=== PATIENT | female | born 1980 | race African-American/Black ===

== ENCOUNTER 2018-11-21 12:47 | Inpatient (IN) | payer OTHER ==
[~2018-11-21] VITALS: Ht 177.8 cm; Wt 110.5 kg
[2018-11-21] MEDS ORDERED: OXYTOCIN 30U/ 0.9% NaCL 500ML 500 ML IV ONE (13:09)
[2018-11-21] MEDS ORDERED: OXYTOCIN 30U/ 0.9% NaCL 500ML 500 ML IV PRN (13:09)
[2018-11-21] MEDS ORDERED: FENTANYL/BUPIV./NS/PF 250 ML EPIDCONT SCH ×2 (13:12→15:53)
[2018-11-21 13:29] LABS: BASOPHILS # (AUTO) 0.01 x10^3/uL (0-0.1); BASOPHILS % (AUTO) 0 % (0-1); EOSINOPHILS # (AUTO) 0.03 x10^3/uL (0-0.4); EOSINOPHILS % (AUTO) 0 % (1-7); LYMPHOCYTES # (AUTO) 1.13 x10^3/uL (1-3.4); LYMPHOCYTES % (AUTO) 13 % (22-44); MD NO; MEAN PLATELET VOLUME 8.9 fL (7.4-10.4); MONOCYTES # (AUTO) 0.57 x10^3/uL (0.2-0.8); MONOCYTES % (AUTO) 7 % (2-9); NEUTROPHILS # (AUTO) 7.13 x10^3/uL (1.8-6.8); NEUTROPHILS % (AUTO) 80 % (42-75); PLATELET COUNT 201 x10^3/uL (130-400); RED BLOOD COUNT 4.33 x10^6/uL (3.82-5.3); RED CELL DISTRIBUTION WIDTH 15.6 % (9.6-15.2)
[2018-11-21] MEDS ORDERED: FENTANYL PF 500 MCG, BUPIVACAINE/PF 0.5%, 30ML 62.5 ML in SODIUM CHLORIDE 0.9% 177.5 ML EPIDCONT SCH (13:30)
[2018-11-21] MEDS ORDERED: FENTANYL PF 100 MCG/2ML IVPush PRN (13:30)
[2018-11-21] MEDS ORDERED: ONDANSETRON 2MG/ML, 2ML IVPush PRN (13:30)
[2018-11-21] MEDS: LACTATED RINGERS 1,000 ML IV SCH ×2 (13:36)
[2018-11-21 13:42] LABS: ALANINE AMINOTRANSFERASE 21 U/L (12-78); ALBUMIN 2.6 g/dL (3.4-5.0); ANION GAP 8 mmol/L (5-15); CALCIUM 8.8 mg/dL (8.5-10.1); CHLORIDE 110 mmol/L (98-107); CREATININE 0.75 mg/dL (0.55-1.02)
[2018-11-21 13:44] LABS: ALKALINE PHOSPHATASE 161 U/L (45-117); BILIRUBIN,TOTAL 0.2 mg/dL (0.2-1.0); TOTAL PROTEIN 6.7 g/dL (6.4-8.2)
[2018-11-21] MEDS ORDERED: NEWBORN KIT ONE (14:12)
[2018-11-21] MEDS ORDERED: LIDOCAINE 1%, 20ML ONE (14:12)
[2018-11-21] MEDS ORDERED: MISOPROSTOL 200 MCG TABLET ONE (14:12)
[2018-11-21] MEDS ORDERED: LACTATED RINGERS 1,000 ML IV SCH (15:53)
[2018-11-21] MEDS ORDERED: LACTATED RINGERS 1,000 ML IVBOLUS PRN (16:00)
[2018-11-21] MEDS ORDERED: EPHEDRINE 50 MG/ML, 1ML IVPush PRN (16:00)
[2018-11-21] MEDS ORDERED: NALOXONE 0.4 MG/ML, 1ML IVPush PRN (16:00)
[2018-11-21] MEDS ORDERED: BUPIVACAINE 0.25% ONE (17:06)
[2018-11-21] MEDS ORDERED: OXYTOCIN 30U/ 0.9% NaCL 500ML 500 ML IV SCH (21:28)
[2018-11-21] MEDS ORDERED: ONDANSETRON 2MG/ML, 2ML IV PRN (21:30)
[2018-11-21] MEDS ORDERED: METHYLERGONOVINE 0.2 MG/ML IM PRN (21:30)
[2018-11-21] MEDS ORDERED: BISACODYL 10 MG SUPP PR PRN (21:30)
[2018-11-21] MEDS ORDERED: MISOPROSTOL 200 MCG TABLET PR PRN (21:30)
[2018-11-21] MEDS ORDERED: CALCIUM CARBONATE 500 MG TAB.CHEW PO PRN (21:30)
[2018-11-21] MEDS ORDERED: METOCLOPRAMIDE 5 MG/ML, 2ML IV PRN (21:30)
[2018-11-21] MEDS ORDERED: GLYCERIN ADULT SUPP PR PRN (21:30)
[2018-11-21] MEDS ORDERED: OXYcodone/APAP 5/325MG TABLET PO PRN ×2 (21:30)
[2018-11-21] MEDS ORDERED: CARBOPROST TROMETHAMINE 250 MCG/ML, 1ML IM PRN (21:30)
[2018-11-21] MEDS ORDERED: ACETAMINOPHEN 325 MG TABLET PO PRN ×3 (21:30)
[2018-11-21] MEDS ORDERED: OXYTOCIN 30U/ 0.9% NaCL 500ML 500 ML ONE (22:13)
[2018-11-22 00:15] VITALS: BP 130/69
[2018-11-22 04:10] VITALS: BP 136/74
[2018-11-22] MEDS: LACTATED RINGERS 1,000 ML IV SCH (05:09)
[2018-11-22] MEDS: IBUPROFEN 600 MG TABLET PO PRN ×2 (05:13→14:02)
[2018-11-22 06:28] LABS: BASOPHILS # (AUTO) 0.03 x10^3/uL (0-0.1); BASOPHILS % (AUTO) 0 % (0-1); EOSINOPHILS # (AUTO) 0.02 x10^3/uL (0-0.4); EOSINOPHILS % (AUTO) 0 % (1-7); LYMPHOCYTES # (AUTO) 1.34 x10^3/uL (1-3.4); LYMPHOCYTES % (AUTO) 12 % (22-44); MD NO; MEAN CORPUSCULAR HEMOGLOBIN 28.1 pg (27.0-34.8); MEAN CORPUSCULAR HGB CONC 33.7 g/dL (32.4-35.8); MEAN CORPUSCULAR VOLUME 83.3 fL (80-100); MEAN PLATELET VOLUME 8.9 fL (7.4-10.4); MONOCYTES # (AUTO) 0.92 x10^3/uL (0.2-0.8); MONOCYTES % (AUTO) 8 % (2-9); NEUTROPHILS # (AUTO) 9.37 x10^3/uL (1.8-6.8); NEUTROPHILS % (AUTO) 80 % (42-75); PLATELET COUNT 155 x10^3/uL (130-400); RED BLOOD COUNT 3.73 x10^6/uL (3.82-5.3); RED CELL DISTRIBUTION WIDTH 15.5 % (9.6-15.2)
[2018-11-22 07:15] VITALS: BP 110/71
[2018-11-22] MEDS: PRENATAL VIT/IRON/FA 1 EACH TABLET PO SCH (09:00)
[2018-11-22] MEDS: DOCUSATE 100 MG CAPSULE PO PRN (09:05)
[2018-11-22 11:30] VITALS: BP 116/79
[2018-11-22 20:20] VITALS: BP 115/71
[2018-11-23] MEDS: IBUPROFEN 600 MG TABLET PO PRN (01:14)
[2018-11-23 07:30] VITALS: BP 102/71
[2018-11-23] MEDS: DOCUSATE 100 MG CAPSULE PO PRN (07:32)
[2018-11-23] MEDS: PRENATAL VIT/IRON/FA 1 EACH TABLET PO SCH (09:00)
[2018-11-23] MEDS ORDERED: IBUP200T49 PO (09:48)
== END 2018-11-23 13:20 | disposition home or self-care (01) | DRG 807 ==
LOC: LDIP 12:47 → 2NW 23:58
PROVIDERS: ADMIT Obstetrics & Gynecology; ATTEND Obstetrics & Gynecology
PROC: 10E0XZZ Delivery of Products of Conception, External Approach (ICD-10-PCS; principal; 2018-11-21)
PROC: 0KQM0ZZ Repair Perineum Muscle, Open Approach (ICD-10-PCS; 2018-11-21)
PROC: 3E0R3BZ Introduction of Anesthetic Agent into Spinal Canal, Percutaneous Approach (ICD-10-PCS; 2018-11-21)
PROC: 00HU33Z Insertion of Infusion Device into Spinal Canal, Percutaneous Approach (ICD-10-PCS; 2018-11-21)
DX: O13.4 Gestational [pregnancy-induced] hypertension without significant proteinuria, complicating childbirth (principal); Z37.0 Single live birth; J45.909 Unspecified asthma, uncomplicated; O99.52 Diseases of the respiratory system complicating childbirth; Z3A.39 39 weeks gestation of pregnancy; O70.1 Second degree perineal laceration during delivery; O12.14 Gestational proteinuria, complicating childbirth
CPT/HCPCS: 36415; 80053; 84550; 85025; 86850; 86900; G0378; J3010; J3490; J2590; J7050; J7120

== ENCOUNTER → 2020-10-27 | Outpatient (CLI) | payer OTHER ==
[~2020-10-27] MED LIST: IBUP200T49 PO
== END | disposition home or self-care (01) ==
LOC: CFH 14:56
PROVIDERS: ATTEND Obstetrics & Gynecology
DX: Z12.31 Encounter for screening mammogram for malignant neoplasm of breast (principal); Z12.39 Encounter for other screening for malignant neoplasm of breast; N60.01 Solitary cyst of right breast; Z80.3 Family history of malignant neoplasm of breast
CPT/HCPCS: 76641; 77063; 77067